=== PATIENT | male | born 1985 | race American Indian/Alaskan Native ===

== ENCOUNTER 2022-07-24 18:32 | Emergency (ER) | payer BC ==
[~2022-07-24] VITALS: Ht 177.8 cm; Wt 72.6 kg
== END 2022-07-25 11:30 | disposition home or self-care (01) ==
LOC: ED 18:32
DX: F10.129 Alcohol abuse with intoxication, unspecified (principal)
CPT/HCPCS: 36415; 51701; 80053; 81001; 85025; 99284-25; A9270; G0480; J1630; J2060; J3411; J7030